=== PATIENT | male | born 1960 | race Caucasian/White ===

== ENCOUNTER 2017-03-10 21:00 | Inpatient (IN) | payer MEDICAID, OTHER ==
[~2017-03-10] VITALS: Ht 188 cm; Wt 93.0 kg
[~2017-03-10 21:00] MED LIST: AMLO10TA PO; ASPI-1052 PO; ATOR20TA PO; BEN50 PO; CARV25TA PO; FURO-570 PO; ISOS30TE PO; NITR0.4T2 SL; POTA20TE62 PO; RANO10002 PO; [UNRECOGNIZED DRUG - CODE] TD
[2017-03-10 21:09] VITALS: BP 155/76
--- NOTE | 2017-03-10 22:45 | NUR ---
PT. AMBULATED TO ER BED 4
[2017-03-10] MEDS ORDERED: ASPIRIN 325 MG TAB PO ONE (23:00)
[2017-03-10] MEDS ORDERED: NITROGLYCERIN 0.4 MG TAB SL ONE (23:00)
--- NOTE | 2017-03-10 23:04 | NUR ---
89Y/M PT. PRESESNT TO ED WITH C/O CHEST PAIN X 1 HR. PT. STATES PAIN AT LT. CHEST RADIATES TO NECK AND LT. SHOULDER, STATES PAIN 09/22. HX. AL X3, CABG, PACE MAKER. AAO X4, AMBULATORY WITH DAY GAIT. RESPIRTAIONS ROOM AIR, EVEN AND UNLABORED. BL LUNG CLEAR. ABDOMEN SOFT, NON TENDER. VSS, ER MADE AWARE OF PT. STATUS. Addendum: 03/11/17 at 0027 by MEDSP NTG TAKEN X3 PAIN NOT RELIEF
--- NOTE | 2017-03-10 23:05 | NUR ---
Patient being evaluated by at bedside.
--- NOTE | 2017-03-10 23:20 | NUR ---
CHEST PAIN NOT RELIEF, BP 102/45 P77, NOTIFIED DR. AGRAWAL. HOLD NTG 2ND DOSE.
[2017-03-10] MEDS ORDERED: MORPHINE SULFATE 5 MG/ML VIAL IVP ONE (23:25)
[2017-03-10 23:34] LABS: HEMATOCRIT 32.8 % (36-52); HEMOGLOBIN 10.5 g/dL (12.0-18.0); MEAN CORPUSCULAR HEMOGLOBIN 29 pg (27-31); MEAN CORPUSCULAR HGB CONC 32 g/dL (33-37); MEAN CORPUSCULAR VOLUME 91 fL (80-94); PLATELET COUNT (AUTO) 144 K/uL (140-450); RED BLOOD CELL COUNT(AUTO) 3.61 MIL/uL (4.20-6.10); RED CELL DISTRIBUTION WIDTH 20.4 % (11.6-13.7); WHITE BLOOD COUNT (AUTO) 3.9 K/uL (4.8-10.8)
[2017-03-10 23:53] LABS: ANION GAP 11.2 (8-16); CARBON DIOXIDE 29.7 mmol/L (21-32); POTASSIUM 4.9 mmol/L (3.5-5.1); PROTHROMBIN TIME 11.6 secs (10.8-13.4)
[2017-03-11] VITALS (7 sets, daily range): BP systolic 103–126; BP diastolic 44–70
[2017-03-11] LABS: EOSINOPHILS % (MANUAL) 2 % (0-4); LYMPHOCYTES % (MANUAL) 13 % (20-46); MONOCYTES % (MANUAL) 11 % (5-12)
--- NOTE | 2017-03-11 | NUR ---
Patient appears to be resting comfortably in bed. Vital Signs within normal limits. Respirations even and unlabored.
[2017-03-11 00:06] LABS: TOTAL BILIRUBIN 0.8 mg/dL (0.0-1.0)
[2017-03-11 00:07] LABS: ALBUMIN 3.7 g/dL (3.4-5.0)
[2017-03-11] MEDS ORDERED: MORPHINE SULFATE 5 MG/ML VIAL IVP ONE (00:45)
[2017-03-11] MEDS ORDERED: ONDANSETRON 4 MG/2 ML VIAL IVP PRN (01:55)
[2017-03-11] MEDS ORDERED: ACETAMINOPHEN 325 MG TAB PO PRN (01:55)
[2017-03-11] MEDS ORDERED: HYDROcodone/APAP 7.5/325 MG 1 TAB PO PRN (01:55)
--- NOTE | 2017-03-11 02:10 | NUR ---
Patient will be admitted to care of . Admited to TELE. Will go to room 106A. Belongings list completed. Report to ANTONIO VALENCIA.
--- NOTE | 2017-03-11 02:20 | NUR ---
PT ARRIVED TO UNIT VIA GURNEY, AMBULATED TO BED FROM HALLWAY WITH STEADY GAIT. RECEIVED REPORT AT BEDSIDE FROM ER NURSE. PT A/OX4, ON ROOM AIR. PT HAS RIGHT UPPER ARM 22G IV, SL. SKIN INTACT. SAFETY PRECAUTIONS IN PLACE. UPDATED BOARD. VITAL SIGNS WITHIN NORMAL LIMITS, PT DENIES PAIN. PT IN STABLE CONDITION, NO SIGNS OF DISTRESS NOTED. BED IN LOW POSITION, CALL LIGHT WITHIN REACH. WILL CONTINUE TO MONITOR.
[2017-03-11 02:41] LABS: CHOL/HDL RATIO 2.1 (1-4.5); FREE T4 (FREE THYROXINE) 0.85 ng/dL (0.76-1.46); MAGNESIUM 2.2 mg/dL (1.8-2.4); PHOSPHORUS 2.6 mg/dL (2.5-4.9); THYROID STIMULATING HORMONE 0.98 uIU/mL (0.34-3.74)
[2017-03-11] MEDS ORDERED: ISOS20TA13 PO (03:49)
[2017-03-11] MEDS ORDERED: NITROGLYCERIN 0.4 MG TAB SL PRN (03:50)
[2017-03-11] MEDS ORDERED: HYDROmorphone 1 MG/ML AMP IVP PRN (03:50)
--- NOTE | 2017-03-11 04:00 | NUR ---
VITAL SIGNS WITHIN NORMAL LIMITS, PT DENIES PAIN. PT IN STABLE CONDITION, NO SIGNS OF DISTRESS NOTED. BED IN LOW POSITION, CALL LIGHT WITHIN REACH. WILL CONTINUE TO MONITOR.
[2017-03-11] MEDS ORDERED: ALBUTEROL SULFATE/IPRATROPIU 3 ML SOL IH PRN (04:30)
[2017-03-11] MEDS: HYDROmorphone PFS 2 MG/ML SYR IVP PRN ×6 (04:32→21:41)
--- NOTE | 2017-03-11 07:16 | NUR ---
ENDORSED PT IN STABLE CONDITION TO DAY SHIFT NURSE FOR CONTINUITY OF CARE.
--- NOTE | 2017-03-11 07:17 | NUR ---
RECEIVED REPORT FROM AIRCRAFT TIME CLERK RN. PATIENT IS AAOX4, RESPIRATORY EFFORT EVEN AND UNLABORED. NO SIGNS AND SYMPTOMS OF ACUTE DISTRESS NOTED AT THIS TIME. HAS IV TO RIGHT UPPER ARM 22G ON SALINE LOCK AT THIS TIME. DISCUSSED PLAN OF CARE WITH PATIENT, VERBALIZED UNDERSTANDING. BED IN LOWEST POSITION, SIDE RAILS UP X2, CALL LIGHT PLACED WITHIN REACH. WILL CONTINUE TO MONITOR.
[2017-03-11] MEDS ORDERED: NITROGLYCERIN 0.6 MG/HR PATCH TD SCH (09:00)
[2017-03-11] MEDS: CARVEDILOL 12.5 MG TAB PO SCH ×2 (09:00→21:40)
[2017-03-11] MEDS: ISOSORBIDE DINITRATE 20 MG TAB PO SCH ×3 (09:00→17:00)
[2017-03-11] MEDS: ATORVASTATIN 20 MG TAB PO SCH (09:01)
[2017-03-11] MEDS: RANOLAZINE 500 MG TER PO SCH ×2 (09:02→21:00)
[2017-03-11] MEDS: DOCUSATE SODIUM 100 MG GELCAP PO SCH ×2 (09:02→21:38)
[2017-03-11] MEDS: FUROSEMIDE 40 MG TAB PO SCH ×2 (09:02→21:40)
[2017-03-11] MEDS: POTASSIUM CHLORIDE 10 MEQ TABER PO SCH (09:03)
[2017-03-11] MEDS: ASPIRIN 325 MG TABEC PO SCH (09:03)
[2017-03-11] MEDS ORDERED: NITROGLYCERIN 0.3 MG/HR PATCH TD SCH (15:15)
[2017-03-11] MEDS ORDERED: ZOLPIDEM 10 MG TAB PO PRN (16:45)
--- NOTE | 2017-03-11 19:12 | NUR ---
ENDORSED PATIENT TO CHARGING MACHINE OPERATOR RN FOR CONTINUITY OF CARE. PATIENT IN STABLE CONDITION.
--- NOTE | 2017-03-11 19:13 | NUR ---
RECEIVED REPORT AT BEDSIDE FROM DAY SHIFT NURSE. PT A/OX4, ON ROOM AIR. PT HAS RIGHT UPPER ARM 22G IV, SL. SKIN INTACT. SAFETY PRECAUTIONS IN PLACE. UPDATED BOARD. VITAL SIGNS WITHIN NORMAL LIMITS, PT DENIES PAIN. PT IN STABLE CONDITION, NO SIGNS OF DISTRESS NOTED. BED IN LOW POSITION, CALL LIGHT WITHIN REACH. WILL CONTINUE TO MONITOR.
[2017-03-11] MEDS: diphenhydrAMINE 50 MG CAP PO PRN (21:58)
--- NOTE | 2017-03-11 22:00 | NUR ---
ADMINISTERED SCHEDULED MEDICATIONS PLUS DILAUDID FOR PAIN AND BENADRYL FOR ITCHING, PT TOLERATED WELL. PT IN STABLE CONDITION, NO SIGNS OF DISTRESS NOTED. BED IN LOW POSITION, CALL LIGHT WITHIN REACH. WILL CONTINUE TO MONITOR.
[2017-03-12] MEDS: HYDROmorphone PFS 2 MG/ML SYR IVP PRN ×4 (01:25→13:21)
--- NOTE | 2017-03-12 01:25 | NUR ---
PT C/O 09/22 BACK PAIN, MEDICATED WITH DILAUDID, PT TOLERATED WELL. VITAL SIGNS WITHIN NORMAL LIMITS, PT DENIES PAIN. PT IN STABLE CONDITION, NO SIGNS OF DISTRESS NOTED. BED IN LOW POSITION, CALL LIGHT WITHIN REACH. WILL CONTINUE TO MONITOR. Addendum: 03/12/17 at 0158 by Michaela Polanco RN DENIES CHEST PAIN.
[2017-03-12 04:00] VITALS: BP 140/80
[2017-03-12 07:17] LABS: BASOPHILS # (AUTO) 0.1 K/uL (0.00-0.22); BASOPHILS % (AUTO) 3.2 % (0.0-2.0); HEMATOCRIT 33.8 % (36-52); HEMOGLOBIN 11.4 g/dL (12.0-18.0); LYMPHOCYTES # (AUTO) 0.5 K/uL (2.0-11.5); LYMPHOCYTES % (AUTO) 19.8 % (20.5-51.1); MEAN CORPUSCULAR HEMOGLOBIN 30 pg (27-31); MEAN CORPUSCULAR HGB CONC 34 g/dL (33-37); MEAN CORPUSCULAR VOLUME 90 fL (80-94); MONOCYTES # (AUTO) 0.3 K/uL (0.8-1.0); MONOCYTES % (AUTO) 11.3 % (1.7-9.3); NEUTROPHILS # (AUTO) 1.8 K/uL (1.8-7.7); NEUTROPHILS % (AUTO) 64.7 % (42.2-75.2); PLATELET COUNT (AUTO) 113 K/uL (140-450); RED BLOOD CELL COUNT(AUTO) 3.75 MIL/uL (4.20-6.10); RED CELL DISTRIBUTION WIDTH 20.2 % (11.6-13.7); WHITE BLOOD COUNT (AUTO) 2.7 K/uL (4.8-10.8)
--- NOTE | 2017-03-12 07:26 | NUR ---
RECEIVED REPORT FROM SURGERY NURSE NURSE. PT IS RESTING IN BED. AAOX4 AMBULATORY. IV RIGHT UPPER ARM SALINE LOCK 22G. NO S/S OF RESPIRATORY DISTRESS OR DISCOMFORT NOTED. DISCUSSED PLAN OF CARE WITH PT. SAFETY/FALL PRECAUTIONS IN PLACE. CALL LIGHT WITHIN REACH. WILL CONTINUE TO MONITOR.
--- NOTE | 2017-03-12 07:36 | NUR ---
ENDORSED PT IN STABLE CONDITION TO DAY SHIFT RN FOR CONTINUITY OF CARE.
[2017-03-12 08:00] VITALS: BP 113/67
[2017-03-12 08:04] LABS: ANION GAP 10.7 (8-16); CARBON DIOXIDE 31.7 mmol/L (21-32); POTASSIUM 4.4 mmol/L (3.5-5.1)
[2017-03-12 08:06] LABS: MAGNESIUM 1.9 mg/dL (1.8-2.4); PHOSPHORUS 3.6 mg/dL (2.5-4.9)
[2017-03-12] MEDS: DOCUSATE SODIUM 100 MG GELCAP PO SCH (08:14)
--- NOTE | 2017-03-12 08:14 | NUR ---
DUE MEDICATIONS GIVEN, PT TOLERATED WELL, CALL LIGHT WITHIN REACH, WILL CONTINUE TO MONITOR.
[2017-03-12] MEDS: ASPIRIN 325 MG TABEC PO SCH (08:15)
[2017-03-12] MEDS: RANOLAZINE 500 MG TER PO SCH (08:16)
[2017-03-12] MEDS: ISOSORBIDE DINITRATE 20 MG TAB PO SCH ×3 (08:16→16:57)
[2017-03-12] MEDS: CARVEDILOL 12.5 MG TAB PO SCH (08:17)
[2017-03-12] MEDS: diphenhydrAMINE 50 MG CAP PO PRN (08:18)
[2017-03-12] MEDS: ATORVASTATIN 20 MG TAB PO SCH (08:18)
[2017-03-12] MEDS: POTASSIUM CHLORIDE 10 MEQ TABER PO SCH (08:27)
[2017-03-12] MEDS ORDERED: NITROGLYCERIN 0.3 MG/HR PATCH TD SCH (09:00)
--- NOTE | 2017-03-12 09:32 | NUR ---
PATIENT HAS BEEN SCREENED AND CATEGORIZED MODERATE NUTRITION RISK. PATIENT WILL BE SEEN WITHIN 3-5 DAYS OF ADMISSION. 03/14/17 - 03/16/17 ELLE OSORIO MBA, RD
--- NOTE | 2017-03-12 09:55 | NUR ---
PATIENT COMPLAINING OF 8/10 PAIN LEVEL, WILL MEDICATE WITH PRN PAIN MEDICATION.
[2017-03-12] MEDS: FUROSEMIDE 40 MG TAB PO SCH ×2 (09:59→16:56)
[2017-03-12 12:00] VITALS: BP 110/96
--- NOTE | 2017-03-12 13:21 | NUR ---
PATIENT COMPLAINING OF A 8/10 PAIN LEVEL, PT STATED ITS ACHING SHARP BACK PAIN. WILL MEDICATE WITH PRN PAIN MEDICATION AT THIS TIME.
[2017-03-12 16:00] VITALS: BP 128/61
--- NOTE | 2017-03-12 17:21 | NUR ---
PATIENT REQUESTING DILAUDID IVP FOR HIS PAIN. I LET HIM KNOW THE DOCTOR HAD DISCONTINUED IT BECAUSE HE IS BEING DISCHARGED.
--- NOTE | 2017-03-12 17:32 | NUR ---
PATIENT ASKED TO SHOWER, ASSISTED PT TO SHOWER ROOM.
--- NOTE | 2017-03-12 18:05 | NUR ---
DISCHARGE INSTRUCTIONS GIVEN. PT VERBALIZED UNDERSTANDING. IV DISCONTINUED. IV INTACT. ID BAND TAKEN OFF. PT STABLE UPON DISCHARGE.
[2017-03-14 06:15] LABS: FOLIC ACID 6.6 ng/mL (>3.0)
== END 2017-03-12 18:45 | disposition home or self-care (01) | DRG 243 ==
LOC: MED 21:00 → MTU 03-11 01:52
PROVIDERS: ADMIT Family Medicine Sports Medicine; ATTEND Family Medicine Sports Medicine
DX: K21.9 Gastro-esophageal reflux disease without esophagitis (principal); I50.43 Acute on chronic combined systolic (congestive) and diastolic (congestive) heart failure; Z95.1 Presence of aortocoronary bypass graft; E78.5 Hyperlipidemia, unspecified; M94.0 Chondrocostal junction syndrome [Tietze]; E78.00 Pure hypercholesterolemia, unspecified; G89.29 Other chronic pain; M54.5 Low back pain; D64.9 Anemia, unspecified; I25.2 Old myocardial infarction; I25.10 Atherosclerotic heart disease of native coronary artery without angina pectoris; Z95.0 Presence of cardiac pacemaker; Z88.8 Allergy status to other drugs, medicaments and biological substances; Z90.49 Acquired absence of other specified parts of digestive tract; Z60.2 Problems related to living alone; Z95.5 Presence of coronary angioplasty implant and graft
CPT/HCPCS: 36415; 71045; 76705; 80048; 80053; 82607; 82728; 82746; 83036; 83540; 83735; 83880; 84100; 84439; 84443; 84484; 85025; 85045; 85610; 85730; 87081; 93005; 96374; 96375; 99285; J1170; Q0092; Q0163

== ENCOUNTER 2018-05-26 21:41 | Inpatient (IN) | payer MEDICAID, MEDICARE ==
[~2018-05-26] VITALS: Ht 190.5 cm; Wt 94.8 kg
--- NOTE | 2018-05-26 01:20 | NUR ---
PT IS AMBULATORY, ALTHOUGH W/ STANDBY ASSIST. NO SCD DEVICE ATTACHED. DR. PUTNAM Addendum: 05/27/18 at 0801 by Latasha Grayson RN DEVNOTE TRIVEDI
[~2018-05-26 21:41] MED LIST changes: +ISOS20TA13 PO; -ISOS30TE PO
[2018-05-26 21:45] VITALS: BP 151/81
--- NOTE | 2018-05-26 21:52 | NUR ---
EKG PERFORMED IN TRIAGE ROOM
--- NOTE | 2018-05-26 21:52 | NUR ---
TO BED # 08 AMBULATORY, REPORT GIVEN TO AMOR ALVAREZ
--- NOTE | 2018-05-26 22:01 | NUR ---
PT TO ED WITH C/O CP SUDDEN ONSET X 45 MINS. PT C/O SOB, LUNG SOUNDS CLEAR TO ASCULTATION. BLE EDEMA NOTED +2/PITTING. CAP REFILL WNL. PULSES WNL. PT PLACED INTO BED, PENDING MD DIAMOND.
[2018-05-26 22:32] LABS: BASOPHILS % (AUTO) 0.5 % (0.0-2.0); EOSINOPHILS % (AUTO) 0.8 % (0.0-4.0); HEMATOCRIT 35.1 % (36-52); HEMOGLOBIN 11.4 g/dL (12.0-18.0); LYMPHOCYTES # (AUTO) 0.4 K/uL (2.0-11.5); LYMPHOCYTES % (AUTO) 9.5 % (20.5-51.1); MEAN CORPUSCULAR HEMOGLOBIN 29 pg (27-31); MEAN CORPUSCULAR HGB CONC 32 g/dL (33-37); MEAN CORPUSCULAR VOLUME 88.9 fL (80-94); MONOCYTES # (AUTO) 0.4 K/uL (0.8-1.0); MONOCYTES % (AUTO) 9.3 % (1.7-9.3); NEUTROPHILS # (AUTO) 3.4 K/uL (1.8-7.7); NEUTROPHILS % (AUTO) 79.9 % (42.2-75.2); PLATELET COUNT (AUTO) 104 K/uL (140-450); RED BLOOD CELL COUNT(AUTO) 3.95 MIL/uL (4.20-6.10); RED CELL DISTRIBUTION WIDTH 17.4 % (11.6-13.7); WHITE BLOOD COUNT (AUTO) 4.3 K/uL (4.8-10.8)
[2018-05-26 22:52] LABS: ALBUMIN 3.7 g/dL (3.4-5.0); ANION GAP 14.9 (8-16); CARBON DIOXIDE 24.7 mmol/L (21-32); CREATININE 1.1 mg/dL (0.7-1.3); POTASSIUM 3.6 mmol/L (3.5-5.1); TOTAL BILIRUBIN 0.8 mg/dL (0.0-1.0)
[2018-05-27] MEDS ORDERED: NITROGLYCERIN 0.4 MG TAB SL ONE (00:25)
[2018-05-27] MEDS ORDERED: NITROGLYCERIN 2% 1 GM PKT TP ONE (00:25)
[2018-05-27] MEDS ORDERED: ONDANSETRON 4 MG/2 ML VIAL IVP PRN (00:45)
[2018-05-27] MEDS ORDERED: ACETAMINOPHEN 325 MG TAB PO PRN (00:45)
[2018-05-27] MEDS ORDERED: ZOLPIDEM 5 MG TAB PO PRN (00:45)
[2018-05-27] MEDS ORDERED: HYDROcodone/APAP 7.5/325 MG 1 TAB PO PRN (00:45)
[2018-05-27] MEDS ORDERED: NITROGLYCERIN 0.4 MG TAB SL PRN ×2 (00:45→04:55)
--- NOTE | 2018-05-27 01:15 | NUR ---
RECEIVED PT FROM ER VIA YVON GRANT, WilnerO 4 AMBULATORY W/ STANDBY ASSIST. UNSTEADY GAIT NOTED. PT HAS HX OF NEURO DEFICIT, W/ SLIGHT SPEECH DELAY NOTED; PT SAID HE HAS HX: CHRONIC LOW BACK PAIN DUE TO FALL FROM ESCALATOR STAIRS, UNTREATED DUE TO HEART CONDITION. SKIN ASSESSMENT DONE, W/ SCRATCHES ON LE NOTED, INTACT. PT ORIENTED TO UNIT. PLACED ON FALL RISK. PLACED IN LOW BED POSITION. BED ALARM, AND CALL LIGHT WITHIN EASY REACH
[2018-05-27 01:20] LABS: FREE T4 (FREE THYROXINE) 1.11 ng/dL (0.76-1.46); PHOSPHORUS 2.8 mg/dL (2.5-4.9); THYROID STIMULATING HORMONE 2.52 uIU/mL (0.34-3.74)
--- NOTE | 2018-05-27 01:20 | NUR ---
Patient will be admitted to care of DR HERNÁNDEZ. Admited to TELE. Will go to room 125-B. Belongings list completed. Report to ANTONIO IBRAHIM.
--- NOTE | 2018-05-27 01:20 | NUR ---
PT IS AMBULATORY, ALTHOUGH W/ STANDBY ASSIST. NO SCD DEVICE ATTACHED. DR. PUTNAM
[2018-05-27] MEDS ORDERED: MAG SULF 2000 MG/WATER PREMIX 50 ML IV SCH (01:30)
--- NOTE | 2018-05-27 01:30 | NUR ---
PT TRYING TO GET SOME SLEEP, IN BED NO RESPIRATORY DISTRESS NOTED.
[2018-05-27] MEDS: NACL 0.9% 1,000 ML IV SCH (02:42)
--- NOTE | 2018-05-27 02:55 | NUR ---
PT C/O OF PAIN ON LOW BACK, GIVEN NORCO. NO CHEST COMPLAINTS AT THIS TIME.
[2018-05-27 04:00] VITALS: BP 132/63
[2018-05-27] MEDS ORDERED: ATOR20TA PO (04:48)
[2018-05-27] MEDS ORDERED: HYDR2TAB6 PO (04:53)
--- NOTE | 2018-05-27 06:23 | NUR ---
PATIENT HAS BEEN SCREENED AND CATEGORIZED MODERATE NUTRITION RISK. PATIENT WILL BE SEEN WITHIN 3-5 DAYS OF ADMISSION. 05/28/18-05/31/18 SERA CANAS MS, RDN
--- NOTE | 2018-05-27 07:18 | NUR ---
ENDORSED TO AM SHIFT FOR CONTINUITY OF CARE. PT IS AWAKE, NO COMPLAINTS OF PAIN AT THIS TIME.
--- NOTE | 2018-05-27 07:30 | NUR ---
RECEIVED HAND OFF REPORT FROM NIGHTSHIFT NURSE. PT IS AWAKE IN BED. PT IV IS INFUSING AT 10ML/HR AND HAS NO SIGNS OF INFILTRATION OR INFECTION. PT APPEARS IN STABLE CONDITION WITH NO APPARENT DISTRESS. ALL SAFETY MEASURES ARE IN PLACE AND WILL CONTINUE TO MONITOR.
[2018-05-27 08:00] VITALS: BP 121/55
--- NOTE | 2018-05-27 08:00 | NUR ---
SPOKE WITH THE PATIENT THAT HE IS FALL RISK AND WE RECOMMEND THAT TO PUT HIM CLOSE TO THE NURSES STATION BUT PATIENT STATED HE WONT TRY TO GET UP BY HIMSELF AND USE CALL LIGHT AND ALSO PT. REFUSED TO BE ON BED ALARM. PT IS A/OX4. NURSE JOAN AWARE OF IT AND WILL MONITOR PT.
[2018-05-27 08:49] LABS: CHOL/HDL RATIO 2.9 (1-4.5)
[2018-05-27] MEDS ORDERED: ASPIRIN 325 MG TABEC PO SCH (09:00)
[2018-05-27] MEDS: RANOLAZINE 500 MG TER PO SCH ×2 (09:00→21:28)
[2018-05-27] MEDS: NITROGLYCERIN 0.6 MG/HR PATCH TD SCH (09:00)
--- NOTE | 2018-05-27 09:04 | NUR ---
EMI CHARGE NURSE INFORMED ME THAT PT IS REFUSING TO BE SWITCHED ROOMS TO A CLOSER LOCATION DUE TO PT BEING A FALL RISK. I SPOKE WITH THE PT PERSONALLY AND THE PT REFUSED TO SWITCH ROOMS. EMI AND I BOTH ASKED THE PATIENT TO SWITCH BEDS TO A BED WITH A BED ALARM PT ALSO REFUSED. PT STATED TO ME, EMI, AND ASHTYN THAT HE WILL USE THE CALL LIGHT TO REQUEST HELP TO THE RESTROOM. PT STATED HE WANTED PAIN MEDICATIONS. WILL ASK THE PATIENT TO SWITCH ROOMS IN A LITTLE BIT AFTER PAIN MEDICATIONS ARE GIVEN.
--- NOTE | 2018-05-27 09:38 | NUR ---
2 ORDERS FOR ASPIRIN SPOKE TO DR. GERMAIN SHE SAID THE 325 MG ASPIRIN SHOULD BE DISCONTINUED
[2018-05-27] MEDS: METOPROLOL 25 MG TAB PO SCH ×2 (09:44→17:00)
[2018-05-27] MEDS: CARVEDILOL 12.5 MG TAB PO SCH ×2 (09:45→17:00)
[2018-05-27] MEDS: ASPIRIN 81 MG TAB.CHEW PO SCH (09:45)
[2018-05-27] MEDS: HYDROmorphone 2 MG TAB PO PRN (09:45)
[2018-05-27] MEDS: diphenhydrAMINE 50 MG CAP PO SCH ×3 (09:46→17:48)
[2018-05-27] MEDS: amLODIPine 5 MG TAB PO SCH ×2 (09:46→21:00)
[2018-05-27] MEDS: POTASSIUM CHLORIDE 10 MEQ TABER PO SCH (09:46)
[2018-05-27] MEDS: FUROSEMIDE 40 MG TAB PO SCH ×2 (09:47→21:00)
[2018-05-27] MEDS: LISINOPRIL 5 MG TAB PO SCH (09:47)
[2018-05-27] MEDS: ISOSORBIDE DINITRATE 20 MG TAB PO SCH ×4 (09:47→17:00)
[2018-05-27] MEDS: DOCUSATE SODIUM 100 MG GELCAP PO SCH ×2 (09:48→21:00)
--- NOTE | 2018-05-27 10:07 | NUR ---
HELD HEPARIN INJECTION BECAUSE PLT WAS 104. NOT ADMINISTERED NITROGLYCERIN PATCH NOT IN PYXIS, NOT IN PT CASSETT. CALLED PHARMACY. PHARMACY SAID THEY DONT HAVE ANY AT THE MOMENT. PHARMACIST WILL GET BACK TO ME IN A MOMENT.
[2018-05-27 12:00] VITALS: BP 91/50
--- NOTE | 2018-05-27 13:14 | NUR ---
PT REFUSED ISOSORBIDE DINITRATE. HELD MEDICATION
--- NOTE | 2018-05-27 15:00 | NUR ---
URINE SPECIMEN COLLECTED. BROUGHT TO LAB.
--- NOTE | 2018-05-27 15:35 | NUR ---
FREQUENT ROUNDING PT IS ASLEEP. NOTABLE CHEST RISE AND FALL. PT APPEARS IN NO APPARENT DISTRESS. ALL SAFETY MEASURES ARE IN PLACE. WILL CONTINUE TO MONITOR.
[2018-05-27 16:00] VITALS: BP 95/51
--- NOTE | 2018-05-27 17:01 | NUR ---
HELD PATIENTS 1700 COREG. LOPRESSOR AND ISOSORBIDE DINITRATE. BP 98/59. BP IS TO LOW TO ADMINISTER MORE BLOOD PRESSURE MEDICATIONS.
[2018-05-27 18:11] LABS: APPEARANCE,URINE CLEAR (CLEAR); BILIRUBIN,URINE NEGATIVE (NEGATIVE); BLOOD, URINE NEGATIVE (NEGATIVE); COLOR,URINE YELLOW (YELLOW); LEUKOCYTE ESTERASE ,URINE NEGATIVE (NEGATIVE); NITRITE, URINE NEGATIVE (NEGATIVE); UGLUCOSE NEGATIVE (NEGATIVE)
[2018-05-27 18:18] LABS: BARBITURATE, URINE NEG. ng/ml (NEG <=200); BENZODIAZEPINE, URINE NEG. ng/mL (NEG <=200); CANNABINOID, URINE NEG. ng/mL (NEG <=50); COCAINE, URINE NEG. ng/mL (NEG <=300); OPIATE, URINE NEG. ng/mL (NEG <=2000); PHENCYCLIDINE SCREEN,URINE NEG. ng/mL (NEG <=25)
--- NOTE | 2018-05-27 18:21 | NUR ---
FREQUENT ROUNDING ON PATIENT PT IS ASLEEP IN BED WITH NOTABLE CHEST RISE AND FALL, PT IS STABLE AND IN NO APPARENT DISTRESS. ALL SAFETY MEASURES ARE IN PLACE. WILL CONTINUE TO MONITOR.
--- NOTE | 2018-05-27 19:22 | NUR ---
ENDORSED PT TO CRINKLING MACHINE OPERATOR NURSE PT IS ASLEEP IN BED WITH NOTABLE CHEST RISE AND FALL. IV SITE FLUSHED WITH NO SIGNS OF INFILTRATION OR INFLAMMATION. PT APPEARS STABLE WITH NO APPARENT DISTRESS. ALL SAFETY MEASURES ARE IN PLACE.
--- NOTE | 2018-05-27 19:23 | NUR ---
RECEIVED AM SHIFT NURSE. PT IS AWAKE, A, O X 4. AMBULATORY W/ UNSTEADY GAIT.PT IV IS INFUSING AT 10ML/HR AND HAS NO SIGNS OF INFILTRATION OR INFECTION. PT HAS NO COMPLAINTS OF CHEST PAIN AT THIS TIME. PT IS A FALL RISK. PT REFUSED TO HAVE BED CHANGED NOR HAVE HIS ROOM CHANGED NEARER TO THE STATION. WILL CONTINUE TO MONITOR.
[2018-05-27 20:00] VITALS: BP 79/40
[2018-05-27] MEDS: ATORVASTATIN 20 MG TAB PO SCH (20:52)
[2018-05-27] MEDS ORDERED: ATORVASTATIN 20 MG TAB PO SCH (21:00)
--- NOTE | 2018-05-27 21:15 | NUR ---
OFFERED PT TO CHANGE BED BECAUSE PT'S PRESENT BED HAS NO BED ALARM. PATIENT AT FALL RISK. ALSO OFFERED PT TO HAVE A CHANGE OF ROOM PLACED NEARER THE NURSES'S STATION BUT FOR BOTH OPTIONS PT REFUSED. WILL INFORM CHARGE NURSE
--- NOTE | 2018-05-27 21:22 | NUR ---
DR. DEGROOT INFORMED THAT BP - 79/40 HIGH BACK REST, SIDELYING POSITION. HELD LASIX, AND NORVASC. DR. PUTNAM.
--- NOTE | 2018-05-27 21:24 | NUR ---
REFUSED ON HAVING HIS MEDS; HEPARIN NA, AND COLACE. DR. DEGROOT AWARE. PATIENT BEEN GOING BACK AND FORTH TO THE BATHROOM STANDBY ASSIST.
[2018-05-28] VITALS: BP 80/39
[2018-05-28] MEDS: NACL 0.9% 1,000 ML IV SCH (00:41)
--- NOTE | 2018-05-28 02:00 | NUR ---
CHECKED OF PT FREQUENTLY, PT SLEEPING SOUNDLY AT HIS SIDE. NO COMPLAINTS OF PAIN AT THIS TIME
[2018-05-28 04:00] VITALS: BP 93/56
--- NOTE | 2018-05-28 04:15 | NUR ---
PT STILL SLEEPING VS TAKEN, BP 80/39 SUPINE. PLACED ON [place] POSITION. RECHECKED AFTER 30 MINS BP STILL LOW 80/[address] DEGROOT.
[2018-05-28 06:52] LABS: BASOPHILS % (AUTO) 0.3 % (0.0-2.0); EOSINOPHILS % (AUTO) 1.5 % (0.0-4.0); HEMATOCRIT 32.9 % (36-52); HEMOGLOBIN 10.8 g/dL (12.0-18.0); LYMPHOCYTES # (AUTO) 0.4 K/uL (2.0-11.5); MEAN CORPUSCULAR HEMOGLOBIN 29 pg (27-31); MEAN CORPUSCULAR HGB CONC 33 g/dL (33-37); MEAN CORPUSCULAR VOLUME 88.8 fL (80-94); MONOCYTES # (AUTO) 0.3 K/uL (0.8-1.0); MONOCYTES % (AUTO) 10.4 % (1.7-9.3); NEUTROPHILS # (AUTO) 2.2 K/uL (1.8-7.7); NEUTROPHILS % (AUTO) 74.8 % (42.2-75.2); PLATELET COUNT (AUTO) 99 K/uL (140-450); RED CELL DISTRIBUTION WIDTH 17.5 % (11.6-13.7); WHITE BLOOD COUNT (AUTO) 2.9 K/uL (4.8-10.8)
[2018-05-28 07:04] LABS: ANION GAP 10.9 (8-16); CARBON DIOXIDE 26.2 mmol/L (21-32); CREATININE 0.8 mg/dL (0.7-1.3); POTASSIUM 4.1 mmol/L (3.5-5.1)
[2018-05-28 07:08] LABS: MAGNESIUM 1.7 mg/dL (1.8-2.4); PHOSPHORUS 3.4 mg/dL (2.5-4.9)
--- NOTE | 2018-05-28 07:34 | NUR ---
ENDORSED TO NEXT SHIFT FOR CONTINUITY OF CARE. PT ASLEEP ON BED, STILL LOW BP WILL ENDORSE TO NEXT SHIFT.
--- NOTE | 2018-05-28 07:35 | NUR ---
Received bedside report from pm nurse Latasha. Pt asleep in bed, respirations even & nonlabored, FLACC 0. Call light within reach.
[2018-05-28] MEDS: METOPROLOL 25 MG TAB PO SCH (08:00)
[2018-05-28] MEDS: CARVEDILOL 12.5 MG TAB PO SCH ×2 (08:00→17:59)
--- NOTE | 2018-05-28 08:05 | NUR ---
ASSUMED CARE FROM ANGI-ANTONIO. RECEIVED PT ASLEEP, AROUSABLE, ORIENTED X4. NO SOB NOTED. NO C/O PAIN AT THIS TIME. IV TO LT UPPER ARM PATENT AND INTACT. CHEST, DIMINISHED AIR ENTRY TO THE BASES. ABDOMEN SOFT, BOWEL SOUNDS PRESENT. PT REFUSED TO HAVE VITAL SIGNS TAKEN AND NOT TO BE BOTHERED FOR NOW, STATED TO COME IN AN HOUR. INSTRUCTED PT TO CALL FOR ASSISTANCE, CALL LIGHT WITHIN REACH, VERBALIZED UNDERSTANDING.
--- NOTE | 2018-05-28 08:05 | NUR ---
Report given to nurse Shane.
[2018-05-28 09:00] VITALS: BP 97/46
[2018-05-28] MEDS: LISINOPRIL 5 MG TAB PO SCH (09:00)
[2018-05-28] MEDS: ISOSORBIDE DINITRATE 20 MG TAB PO SCH ×3 (09:00→18:00)
[2018-05-28] MEDS: ASPIRIN 81 MG TAB.CHEW PO SCH (09:00)
[2018-05-28] MEDS: NITROGLYCERIN 0.6 MG/HR PATCH TD SCH (09:00)
[2018-05-28] MEDS: diphenhydrAMINE 50 MG CAP PO SCH ×3 (09:00→17:59)
[2018-05-28] MEDS: amLODIPine 5 MG TAB PO SCH (09:00)
--- NOTE | 2018-05-28 09:00 | NUR ---
PT REFUSED TO TAKE HIS SCHEDULED MEDS YET, STATED HE WILL TAKE IT LATER. RISKS AND CONSEQUENCES EXPLAINED TO PT, VERBALIZED UNDERSTANDING.
[2018-05-28] MEDS ORDERED: MAGNESIUM OXIDE 400 MG TAB PO SCH (10:30)
--- NOTE | 2018-05-28 11:30 | NUR ---
OFFERED PT HIS SCHEDULED MEDS AGAIN AND STATED HE DOES NOT WANT TO TAKE IT AT THIS TIME, RISKS AND CONSEQUENCES EXPLAINED TO PT, VERBALIZED UNDERSTANDING.
[2018-05-28 12:00] VITALS: BP 120/64
[2018-05-28] MEDS: HYDROmorphone 2 MG TAB PO PRN (14:27)
[2018-05-28] MEDS: DOCUSATE SODIUM 100 MG GELCAP PO SCH ×2 (14:28→20:10)
[2018-05-28] MEDS: RANOLAZINE 500 MG TER PO SCH ×2 (14:28→20:10)
[2018-05-28] MEDS: POTASSIUM CHLORIDE 10 MEQ TABER PO SCH (14:29)
[2018-05-28] MEDS: FUROSEMIDE 40 MG TAB PO SCH ×2 (14:29→20:10)
--- NOTE | 2018-05-28 14:30 | NUR ---
PT TOOK HIS SCHEDULED MEDS, BUT REFUSED SOME OF IT, RISKS AND CONSEQUENCES EXPLAINED, VERBALIZED UNDERSTANDING.
[2018-05-28 16:00] VITALS: BP 120/62
--- NOTE | 2018-05-28 16:00 | NUR ---
PT SLEEPING. NO SOB NOTED. NO SIGNS OF PAIN.
--- NOTE | 2018-05-28 18:10 | NUR ---
PT EATING DINNER. NO SOB NOTED. NO COMPLAINTS MADE.
--- NOTE | 2018-05-28 19:00 | NUR ---
PT RESTING. NO SOB NOTED. NO C/O PAIN AT THIS TIME. ENDORSED TO NEXT SHIFT NURSE FOR CONTINUITY OF CARE.
--- NOTE | 2018-05-28 19:20 | NUR ---
RECEIVED BEDSIDE REPORT FROM DAY SHIFT NURSE LALA RN, PT STABLE, NO DISTRESS NOTED, IV TO L UA 22 G PATENT, INTACT, INFUSING NS @ 10ML/HR, INFUSING WELL, PT ON ROOM AIR, NO SOB NOTED, NO C/O PAIN AT THIS MOMENT, INITIAL ASSESSMENT DONE, ALL SAFETY PRECAUTION MET, CALL LIGHT WITHIN REACH, WILL CONTINUE TO MONITOR.
[2018-05-28 20:00] VITALS: BP 103/45
[2018-05-28] MEDS: ATORVASTATIN 20 MG TAB PO SCH (20:10)
--- NOTE | 2018-05-28 20:10 | NUR ---
DUE MEDICATION ADMINISTERED, PT TOLERATED WELL, NO DISTRESS NOTED, CALL LIGHT WITHIN REACH, PT STATED HAVING BACK PAIN THAT THE MEDICATION THAT WAS GIVEN PREVIOUSLY DID NOT WORK, NOTIFIED DR. MADRID REGARDING PT COMPLAINTS, DR. NARVAEZ WILL SEE PT. PT RESTING IN BED, WILL CONTINUE TO MONITOR.
--- NOTE | 2018-05-28 20:30 | NUR ---
DR. MADRID AT BEDSIDE TALKING TO PT, NO NEW ORDER.
--- NOTE | 2018-05-28 21:20 | NUR ---
CHECKED ON PT, PT SLEEPING, NO DISTRESS NOTED, CALL LIGHT WITHIN REACH, WILL CONTINUE TO MONITOR.
--- NOTE | 2018-05-28 23:55 | NUR ---
CHECKED ON PT, PT SLEEPING, NO DISTRESS NOTED, V/S TAKEN, WITHIN PT BASELINE, PT STATED HAVING PAIN BUT REFUSED TO TAKE PRESCRIBED PAIN MEDICATION, PT RESTING, NO DISTRESS NOTED, CALL LIGHT WITHIN REACH, WILL CONTINUE TO MONITOR.
[2018-05-29] VITALS: BP 122/58
[2018-05-29] MEDS: NACL 0.9% 1,000 ML IV SCH (01:01)
--- NOTE | 2018-05-29 04:19 | NUR ---
PT REFUSES V/S CHECK, NO DISTRESS NOTED, SLEEPING, NOTIFIED DR. JULIUS DR. STATED UNDERSTANDING, CALL LIGHT WITHIN REACH, WILL CONTINUE TO MONITOR.
--- NOTE | 2018-05-29 07:30 | NUR ---
RECEIVED PT ASLEEP, AROUSABLE, ORIENTED X4. NO SOB NOTED. NO C/O PAIN AT THIS TIME. STATED HE DOES NOT WANT TO BE BOTHERED. IV TO LT UPPER ARM PATENT AND INTACT. CHEST, DIMINISHED AIR ENTRY TO THE BASES. ABDOMEN SOFT, BOWEL SOUNDS PRESENT. PT REFUSED TO HAVE VITAL SIGNS TAKEN AND NOT TO BE BOTHERED FOR NOW, STATED TO COME IN LATER WHEN HE WAKES UP. INSTRUCTED PT TO CALL FOR ASSISTANCE, CALL LIGHT WITHIN REACH, VERBALIZED UNDERSTANDING.
--- NOTE | 2018-05-29 07:35 | NUR ---
ENDORSED PT TO DAY SHIFT NURSE, NO DISTRESS NOTED, CALL LIGHT WITHIN REACH.
[2018-05-29] MEDS: CARVEDILOL 12.5 MG TAB PO SCH (08:00)
--- NOTE | 2018-05-29 08:30 | NUR ---
DR. BRUNO NOTIFIED THAT PT REFUSED VITAL SIGNS CHECK AND REFUSED TO TAKE HIS SCHEDULED MEDS.
[2018-05-29] MEDS: NITROGLYCERIN 0.6 MG/HR PATCH TD SCH (09:00)
[2018-05-29] MEDS ORDERED: amLODIPine 5 MG TAB PO SCH (09:00)
[2018-05-29] MEDS: ISOSORBIDE DINITRATE 20 MG TAB PO SCH ×2 (09:00→13:00)
[2018-05-29] MEDS: diphenhydrAMINE 50 MG CAP PO SCH ×2 (09:00→13:00)
--- NOTE | 2018-05-29 09:00 | NUR ---
PT FINISHED EATING BREAKFAST. NO SOB NOTED. NO COMPLAINTS MADE. PT STILL DOES NOT WANT VITAL SIGNS TO BE TAKEN, PT STATED LATER.
[2018-05-29] MEDS ORDERED: AMLO5TAB6 PO (10:11)
[2018-05-29] MEDS ORDERED: MAGNESIUM OXIDE 400 MG TAB PO SCH (10:17)
--- NOTE | 2018-05-29 11:00 | NUR ---
NOTIFIED PT THAT HE IS GOING TO BE DISCHARGED TODAY. 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 MEDICAL TECHNOLOGIST HEMATOLOGY NURSE NOTIFIED
--- NOTE | 2018-05-29 13:00 | NUR ---
PT STILL REFUSING TO TAKE ALL HIS MEDICATIONS, RISKS AND CONSEQUENCES EXPLAINED TO PT, VERBALIZED UNDERSTANDING.
--- NOTE | 2018-05-29 15:00 | NUR ---
PT AWAKE, GROOMING HIMSELF IN THE SINK, STATED HE IS JUST WAITING FOR HIS FRIEND. NO SOB NOTED. NO COMPLAINTS MADE.
--- NOTE | 2018-05-29 17:00 | NUR ---
PT STATED HE WILL TAKE THE BUS GOING TO THE TRAIN STATION, THEN HE WILL BE PICKED UP BY HIS FRIEND IN [place] TRAIN STATION. DISCHARGE INSTRUCTIONS GIVEN TO PT WHICH VERBALIZED FULL UNDERSTANDING OF THE TEACHINGS GIVEN AND THE NEED TO FOLLOW UP WITH OWN PCP AND FARM MACHINERY ENGINE MECHANIC WITHIN 7 DAYS. ARM BANDS AND IV REMOVED, CANNULA TIP INTACT.
--- NOTE | 2018-05-29 17:15 | NUR ---
PT WHEELED TO THE FRONT LOBBY IN STABLE CONDITION. NO SOB NOTED, NO COMPLAINTS OF PAIN. PT STATED HE WILL WALK TOWARDS [place]E FOR THE BUS. PT AMBULATORY AND WITH STEADY GAIT. D/C HOME TP SELF.
== END 2018-05-29 17:15 | disposition home or self-care (01) | DRG 311 ==
LOC: MED 21:41 → MMU 05-27 00:47
PROVIDERS: ADMIT General Practice; ATTEND General Practice
DX: I20.1 Angina pectoris with documented spasm (principal); I42.0 Dilated cardiomyopathy; E83.42 Hypomagnesemia; D69.6 Thrombocytopenia, unspecified; I08.3 Combined rheumatic disorders of mitral, aortic and tricuspid valves; R74.0 Nonspecific elevation of levels of transaminase and lactic acid dehydrogenase [LDH]; I11.9 Hypertensive heart disease without heart failure; Z88.6 Allergy status to analgesic agent; Z95.1 Presence of aortocoronary bypass graft; Z95.810 Presence of automatic (implantable) cardiac defibrillator; Z88.8 Allergy status to other drugs, medicaments and biological substances
CPT/HCPCS: 36415; 71046; 80048; 80053; 80305; 81003; 82150; 83036; 83690; 83735; 83880; 84100; 84439; 84443; 84484; 85025; 85610; 85730; 87081; 93005; 99285; J1644; J3475; J7030; Q0163

== ENCOUNTER 2021-01-06 21:37 | Inpatient (IN) | payer MEDICAID, OTHER ==
[~2021-01-06] VITALS: Ht 190.5 cm; Wt 107.5 kg
[~2021-01-06 21:37] MED LIST changes: +AMLO-3 PO; -AMLO10TA PO; -ATOR20TA PO; +ATOR20TA40 PO; -BEN50 PO; -CARV25TA PO; -FURO-570 PO; +FURO40TA9 PO; -ISOS20TA13 PO; +ISOS30TE68 PO; -NITR0.4T2 SL; +NITR1PAT22 TD; +RANEX500 PO; +SPIR25TA PO; -[UNRECOGNIZED DRUG - CODE] TD
[2021-01-06 21:41] VITALS: BP 132/53
--- NOTE | 2021-01-06 21:49 | NUR ---
PT AMBULATED TO ER BED 4
[2021-01-06 22:19] LABS: BASOPHILS % (AUTO) 0.4 % (0.0-2.0); EOSINOPHILS # (AUTO) 0.1 K/uL (0-0.4); EOSINOPHILS % (AUTO) 1.1 % (0.0-4.0); HEMATOCRIT 36.3 % (36-52); HEMOGLOBIN 12.2 g/dL (12.0-18.0); LYMPHOCYTES # (AUTO) 0.6 K/uL (2.0-11.5); LYMPHOCYTES % (AUTO) 10.7 % (20.5-51.1); MEAN CORPUSCULAR HEMOGLOBIN 31 pg (27-31); MEAN CORPUSCULAR HGB CONC 34 g/dL (33-37); MEAN CORPUSCULAR VOLUME 91.1 fL (80-94); MONOCYTES # (AUTO) 0.5 K/uL (0.8-1.0); MONOCYTES % (AUTO) 9.5 % (1.7-9.3); NEUTROPHILS # (AUTO) 4.4 K/uL (1.8-7.7); NEUTROPHILS % (AUTO) 78.3 % (42.2-75.2); PLATELET COUNT (AUTO) 138 K/uL (140-450); RED BLOOD CELL COUNT(AUTO) 3.98 MIL/uL (4.20-6.10); RED CELL DISTRIBUTION WIDTH 16.8 % (11.6-13.7); WHITE BLOOD COUNT (AUTO) 5.6 K/uL (4.8-10.8)
--- NOTE | 2021-01-06 22:20 | NUR ---
Dr. Farley examining patient.
--- NOTE | 2021-01-06 22:22 | NUR ---
X-Ray at bedside.
[2021-01-06] MEDS ORDERED: NITROGLYCERIN 0.4 MG TAB SL ONE (22:25)
[2021-01-06] MEDS ORDERED: BUMETANIDE 1 MG/4 ML VIAL IV ONE (22:25)
[2021-01-06] MEDS ORDERED: MORPHINE SULFATE 2 MG/ML SYR IVP ONE (22:25)
[2021-01-06 22:39] LABS: ALBUMIN 4.1 g/dL (3.4-5.0); ANION GAP 16.8 (8-16); CARBON DIOXIDE 24.7 mmol/L (21-32); POTASSIUM 5.5 mmol/L (3.5-5.1); TOTAL BILIRUBIN 0.6 mg/dL (0.0-1.0)
[2021-01-06 22:41] LABS: PHOSPHORUS 3.6 mg/dL (2.5-4.9)
[2021-01-06 23:40] LABS: APPEARANCE,URINE CLEAR (CLEAR); BILIRUBIN,URINE NEGATIVE (NEGATIVE); BLOOD, URINE NEGATIVE (NEGATIVE); COLOR,URINE YELLOW (YELLOW); LEUKOCYTE ESTERASE ,URINE NEGATIVE (NEGATIVE); NITRITE, URINE NEGATIVE (NEGATIVE); UGLUCOSE NEGATIVE (NEGATIVE)
--- NOTE | 2021-01-07 00:20 | NUR ---
PATIENT SAY THAT THE FAMILY WILL BRING THE HOME LIST OF MEDICATION TOMORROW
[2021-01-07] MEDS ORDERED: POTASSIUM CHLORIDE 10 MEQ TABER PO PRN (00:30)
[2021-01-07] MEDS ORDERED: ACETAMINOPHEN 325 MG TAB PO PRN (00:30)
[2021-01-07] MEDS ORDERED: DOCUSATE SODIUM 100 MG GELCAP PO PRN (00:30)
[2021-01-07] MEDS ORDERED: ONDANSETRON 4 MG/2 ML VIAL IM/IVP PRN (00:30)
[2021-01-07] MEDS ORDERED: ZOLPIDEM 5 MG TAB PO PRN (00:30)
[2021-01-07] MEDS ORDERED: HYDROcodone/APAP 7.5/325 MG 1 TAB PO PRN (00:30)
[2021-01-07] MEDS ORDERED: guaiFENesin DM 200/20 MG-10 ML 10 ML UDC PO PRN (00:30)
--- NOTE | 2021-01-07 00:34 | NUR ---
PATIENT ADMITED INTO THE FLOOR BED 122B ALERT ORIENTED STABLE REPORT AND ENDORSED CARE TO LUCILA ALVAREZ NOT COMPLAINING OF PAIN VITAL SIGNS IN NORMAL LIMITS PACE ON THE MONITOR GOING UNDER DR LOKI CHRISTIAN DOCTOR //Sierra ALVAREZ
[2021-01-07 01:02] LABS: PROTHROMBIN TIME 10.1 secs (10.8-13.4)
[2021-01-07 01:03] VITALS: BP 128/67
--- NOTE | 2021-01-07 01:03 | NUR ---
RECEIVED FROM ER NURSE VIA RUDY. PT AWAKE, ALERT AND ORIENTED. PT ON RA. AMBULATORY.PT HAS G22 SL ON RIGHT HAND. PT IS COMPLAINING OF R HIP PAIN WHEN WALKING.DENIES SOB AND CHEST PAIN. PT HAS NO OTHER COMPLAINS AT THIS TIME. ALL PRECAUTIONS IN PLACE. WILL CONTINUE TO MONITOR.
[2021-01-07 01:16] LABS: BARBITURATE, URINE NEGATIVE ng/ml (NEG <=200); BENZODIAZEPINE, URINE NEGATIVE ng/mL (NEG <=200); CANNABINOID, URINE NEGATIVE ng/mL (NEG <=50); COCAINE, URINE NEGATIVE ng/mL (NEG <=300); OPIATE, URINE POSITIVE ng/mL (NEG <=2000); PHENCYCLIDINE SCREEN,URINE NEGATIVE ng/mL (NEG <=25)
[2021-01-07 01:35] LABS: CHOL/HDL RATIO 2.5 (1-4.5); FREE T4 (FREE THYROXINE) 0.8 ng/dL (0.76-1.46); THYROID STIMULATING HORMONE 4.13 uIU/mL (0.34-3.74)
--- NOTE | 2021-01-07 03:07 | NUR ---
PT ASLEEP ON BED. BREATHING EQUAL AND UNLABORED. ALL PRECAUTIONS IN PLACE. WILL CONTINUE TO MONITOR.
[2021-01-07 04:00] VITALS: BP 125/82
--- NOTE | 2021-01-07 04:15 | NUR ---
PT RESTING IN BED. COMPLAINED OF PAIN ON RIGHT HIP. I OFFERED NORCO BUT HE REFUSED. ALL PRECAUTIONS IN PLACE. WILL CONTINUE TO MONITOR.
--- NOTE | 2021-01-07 07:01 | NUR ---
PT STABLE. NO ACUTE EVENTS THROUGHOUT THE NIGHT. PT NOT IN ANY DISTRESS. NO COMPLAINS AT THIS TIME. ALL NEEDS ATTENDED.ALL PRECAUTIONS IN PLACE. CALL LIGHT WITHIN REACH.WILL ENDORSE TO AM SHIFT NURSE.
--- NOTE | 2021-01-07 07:26 | NUR ---
RECEIVED REPORT FROM JAIL KEEPER NURSE FOR CONTINUITY OF CARE, POC DISCUSSED. PT IS RESTING ON HIS SIDE IN STABLE CONDITION WITH EYES SHUT, ON ROOM AIR WITH CHEST RISING AND FALLING EVEN AND UNLABORED. PT IS ON TELE MONITOR WITH A PACED HEART RATE. SKIN INTACT. PT HAS A RIGHT HAND 22G SALINE LOCK. ALL SAFETY MEASURES IN PLACE, CALL LIGHT WITHIN REACH. WILL CONTINUE TO MONITOR.
--- NOTE | 2021-01-07 07:31 | NUR ---
PT STABLE. ENDORSED TO AM SHIFT NURSE FOR CONTINUITY OF CARE.
--- NOTE | 2021-01-07 07:56 | NUR ---
PATIENT HAS BEEN SCREENED AND CATEGORIZED MODERATE NUTRITION RISK. PATIENT WILL BE SEEN WITHIN 3-5 DAYS OF ADMISSION. 01/09/2021-01/11/[address]
[2021-01-07 08:00] VITALS: BP 98/55
[2021-01-07] MEDS: amLODIPine 5 MG TAB PO SCH (09:00)
[2021-01-07] MEDS: ISOSORBIDE MONONITRATE 30 MG TABER PO SCH (09:00)
[2021-01-07] MEDS: PANTOPRAZOLE 40 MG TABEC PO SCH (09:00)
[2021-01-07] MEDS: FUROSEMIDE 40 MG TAB PO SCH ×2 (09:00→21:40)
[2021-01-07] MEDS: SPIRONOLACTONE 25 MG TAB PO SCH (09:00)
[2021-01-07] MEDS: ATORVASTATIN 20 MG TAB PO SCH (09:00)
--- NOTE | 2021-01-07 09:04 | NUR ---
JOSHUA MEDICATION ADMINISTERED PER MD ORDER. PT TOLERATED ADMINISTRATION. PT EDUCATION PROVIDED AND PT VERBALIZED UNDERSTANDING. BP MEDICATION HELD DUE TO DECREASED BP. PT IS STABLE RESTING IN BED. ALL SAFETY MEASURES IN PLACE, CALL LIGHT WITHIN REACH. WILL CONTINUE TO MONITOR.
[2021-01-07 12:00] VITALS: BP 106/61
[2021-01-07] MEDS ORDERED: MORPHINE SULFATE 2 MG/ML SYR IVP PRN (12:05)
--- NOTE | 2021-01-07 12:23 | NUR ---
PRN PAIN MEDICATION ADMINISTERED PER MD ORDER, PT TOLERATED ADMINISTRATION. IV IS PATENT AND INTACT. PT EDUCATION PROVIDED. PT IS IN STABLE CONDITION. ALL SAFETY MEASURES IN PLACE, CALL LIGHT WITHIN REACH. WILL CONTINUE TO MONTIOR.
--- NOTE | 2021-01-07 12:39 | NUR ---
LUNCH AT BEDSIDE. PT PROVIDED WITH MILK. REPORTS ALL OTHER NEEDS ARE MET AT THIS TIME.
--- NOTE | 2021-01-07 13:40 | NUR ---
PT IS RESTING IN BED WITH NO ACUTE S/S OF DISTRESS. ALL SAFETY MEASURES IN PLACE, CALL LIGHT WITHIN REACH. WILL CONTINUE TO MONITOR.
--- NOTE | 2021-01-07 15:19 | NUR ---
PT STABLE IN BED WITH NO ACUTE S/S OF DISTRESS. ALL SAFETY MEASURES IN PLACE, CALL LIGHT WITHIN REACH.WILL CONTINUE TO MONITOR.
[2021-01-07 16:00] VITALS: BP 116/60
--- NOTE | 2021-01-07 17:33 | NUR ---
NOTIFIED MD OF PTS REPORT OF 8/10 PAIN IN HIS HIP AGAIN.
[2021-01-07] MEDS: MORPHINE SULFATE 2 MG/ML SYR IVP PRN ×2 (18:05→23:37)
--- NOTE | 2021-01-07 18:55 | NUR ---
PT HAS BEEN STABLE THROUGHOUT SHIFT, ALL NEEDS HAVE BEEN MET. PT WILL BE ENDORSED TO ATTIC FANS MECHANIC NURSE. POC WILL BE DISCUSSED.
[2021-01-07 20:00] VITALS: BP 160/57
--- NOTE | 2021-01-07 20:00 | NUR ---
PATIENT WAS RECEIVED ALERT AND COHERENT, AMBULATES TO THE BATHROOM AND BACK TO BED, DENIES PAIN NOR SOB.
--- NOTE | 2021-01-07 22:00 | NUR ---
PATIENT REQUESTED FOR SANDWICH, RN DELIVERED A TURKEY SANDWICH.
--- NOTE | 2021-01-07 23:37 | NUR ---
PATIENT COMPLAINT OF PAIN IN HIS BACK AND RIGHT HIP, MEDICATED WITH MORPHINE 3 MG IV PUSH, STOCK WAS 2 MG PER CARTRIDGE X 2 CARTRIDGES 0.5 OF A CARTRIDGE WAS WASTED WITH WITNESS TO MAKE 3 MG OUT OF 4 MG/ 2 CARTRIDGES.
[2021-01-08] VITALS: BP 168/73
--- NOTE | 2021-01-08 | NUR ---
PATIENT WAS ASLEEP NO S/S OF DISTRESS, DENIES PAIN.
--- NOTE | 2021-01-08 02:00 | NUR ---
PATIENT WAS CALMLY ASLEEP.
[2021-01-08 04:00] VITALS: BP 103/62
[2021-01-08] MEDS: MORPHINE SULFATE 2 MG/ML SYR IVP PRN ×5 (05:03→22:23)
--- NOTE | 2021-01-08 05:03 | NUR ---
INK GRINDER WENT TO THE PATIENT TO DRAW BLOOD. ASKED FOR RN. PATIENT C/O PAIN IN HIS RIGHT THIGH AND BACK 09/22, MEDICATED WITH MORPHINE 3 MG IV PUSH.
[2021-01-08 06:21] LABS: BASOPHILS % (AUTO) 0.5 % (0.0-2.0); EOSINOPHILS % (AUTO) 1.1 % (0.0-4.0); HEMATOCRIT 34.9 % (36-52); HEMOGLOBIN 11.9 g/dL (12.0-18.0); LYMPHOCYTES # (AUTO) 0.5 K/uL (2.0-11.5); LYMPHOCYTES % (AUTO) 15.2 % (20.5-51.1); MEAN CORPUSCULAR HEMOGLOBIN 31 pg (27-31); MEAN CORPUSCULAR HGB CONC 34 g/dL (33-37); MONOCYTES # (AUTO) 0.4 K/uL (0.8-1.0); MONOCYTES % (AUTO) 11.9 % (1.7-9.3); NEUTROPHILS # (AUTO) 2.3 K/uL (1.8-7.7); NEUTROPHILS % (AUTO) 71.3 % (42.2-75.2); PLATELET COUNT (AUTO) 98 K/uL (140-450); RED BLOOD CELL COUNT(AUTO) 3.83 MIL/uL (4.20-6.10); RED CELL DISTRIBUTION WIDTH 16.9 % (11.6-13.7); WHITE BLOOD COUNT (AUTO) 3.2 K/uL (4.8-10.8)
[2021-01-08 06:45] LABS: ANION GAP 11.3 (8-16); CARBON DIOXIDE 29.7 mmol/L (21-32); CREATININE 1.2 mg/dL (0.6-1.3)
[2021-01-08 07:07] LABS: T4 (THYROXINE) 5.6 ug/dL (4.5-12.0)
--- NOTE | 2021-01-08 07:42 | NUR ---
ALL REPORTS WERE GIVEN, TRANSFER OF CARE ENDORSED.
--- NOTE | 2021-01-08 07:53 | NUR ---
RECEIVED REPORT FROM EFFICIENCY ENGINEER NURSE FOR CONTINUITY OF CARE, POC DISCUSSED. PT IS RESTING ON BED ANAHI COMPLAINS AT THIS MOMENT NO SOD NOTED ON ROOM AIR WITH CHEST RISING AND FALLING EVEN AND UNLABORED. PT IS ON TELE MONITOR WITH A PACED HEART RATE. SKIN INTACT. PT HAS A RIGHT HAND 22G SALINE LOCK. ALL SAFETY MEASURES IN PLACE, CALL LIGHT WITHIN REACH.
[2021-01-08 08:00] VITALS: BP 134/68
[2021-01-08] MEDS: ISOSORBIDE MONONITRATE 30 MG TABER PO SCH (09:16)
[2021-01-08] MEDS: SPIRONOLACTONE 25 MG TAB PO SCH (09:16)
[2021-01-08] MEDS: PANTOPRAZOLE 40 MG TABEC PO SCH (09:16)
[2021-01-08] MEDS: FUROSEMIDE 40 MG TAB PO SCH ×2 (09:16→20:49)
[2021-01-08] MEDS: amLODIPine 5 MG TAB PO SCH (09:17)
[2021-01-08] MEDS: ATORVASTATIN 20 MG TAB PO SCH (09:17)
--- NOTE | 2021-01-08 09:45 | NUR ---
PATIENT IN BED COMPLAINS ABOUT PAIN GOT MEDICATED MD ORDER .NO SOD NOTED, GOT MORNING MEDICATION TOLERATED WELL, ALL SAFETY MEASURES IN PLACE , CALLS LIGHT WITHIN REACH
--- NOTE | 2021-01-08 11:56 | NUR ---
PATIENT IN BED NO COMPLAINS NO SOD NOTED, ALL SAFETY MEASURES IN PLACE , CALLS LIGHT WITHIN REACH
[2021-01-08 12:00] VITALS: BP 135/52
--- NOTE | 2021-01-08 13:24 | NUR ---
DC PLANNING: THE PATIENT ADMITTED THROUGH THE ED WITH C/O CHEST PAIN AND WORSENING SOB. THE PATIENT HAS A H/O CHF, CABG, AORTIC VALVE REPLACEMENT, ICD PLACEMENT, ABLATION AND ANGINA. HE ALSO C/O LE EDEMA AND AN 8 LB WEIGHT GAIN. HE IS FOLLOWED AT [facility] BY CARDIOLOGY AND HAS A HENDERSON ADDRESS. CXR SHOWED CARDIOMEGALY AND PULMONARY EDEMA, ECHO SHOWS A FUNCTIONING PROSTHETIC AORTIC VALVE WITH LVEF OF 55-60%. STARTED ON MS IV PRN, LASIX PO, FLUID RESTRICTION OF 1200CC/DAY, DAILY WEIGHTS AND CARDIAC DIET. THE PATIENT HISTORICALLY TAKES AN UBER TO THE TRAIN STATION TO GET BACK HOME WHEN HE DISCHARGES, DC PLAN IS FOR HIM TO RETURN HOME WHEN CLINICALLY STABLE. CM WILL FOLLOW FOR NEEDS.
--- NOTE | 2021-01-08 14:27 | NUR ---
PATIENT IN BED NO COMPLAINS NO SOD NOTED, ALL SAFETY MEASURES IN PLACE , CALLS LIGHT WITHIN REACH
[2021-01-08 16:00] VITALS: BP 133/60
--- NOTE | 2021-01-08 16:24 | NUR ---
PATIENT IN BED NO COMPLAINS NO SOD NOTED, ALL SAFETY MEASURES IN PLACE , CALLS LIGHT WITHIN REACH
--- NOTE | 2021-01-08 17:32 | NUR ---
PATIENT IN BED NO COMPLAINS NO SOD NOTED, ALL SAFETY MEASURES IN PLACE , CALLS LIGHT WITHIN REACH
--- NOTE | 2021-01-08 19:24 | NUR ---
full bedside report given to night club manager nurse
--- NOTE | 2021-01-08 19:30 | NUR ---
RECEIVED REPORT FROM RN DAYSHIFT NURSE AT BEDSIDE FOR CONTINUITY OF CARE, PT IN STABLE CONDITION.
[2021-01-08 20:00] VITALS: BP 113/55
--- NOTE | 2021-01-08 20:30 | NUR ---
PT LYING IN BED AOX4 ON ROOM AIR SKIN INTACT. HE HAS A 22G ON RIGHT HAND AND SALINE LOCKED. PT HAS NO C/O VOICED AT THIS TIME. V/S FOLLOWS: T 99.2 P 70 R 18 B/P 113/55 02 94% ON ROOM AIR. ALL UNIVERSAL FALLS PRECAUTIONS IN PLACE.
--- NOTE | 2021-01-08 20:45 | NUR ---
PT DECLINED ANY COOLING MEASURES, HE HAD NO BLANKETS OR SHEETS ON. WILL CONTINUE TO MONITOR TEMPERATURE.
--- NOTE | 2021-01-08 21:00 | NUR ---
CALLED MD LÓPEZ REGARDING PT ORDERED LASIX. B/P WAS 113/55, PER OK TO GIVE. PT WAS GIVEN ORDERED LASIX MEDICATION PURPOSE EXPLAINED TO PT AND PT VERBALIZED UNDERSTANDING. PT LUNG SOUNDS CLEAR RESPIRATIONS EVEN AND UNLABORED. PT DENIES ANY CHEST PAIN AT THIS TIME. ALL UNIVERSAL FALLS PRECAUTIONS IN PLACE.
--- NOTE | 2021-01-08 22:30 | NUR ---
PT C/O SEVERE HIP AND BACK PAIN, HE WAS GIVEN IVP/PRN MORPHINE WILL MONITOR FOR EFFECT. ALL OTHER REQUESTS ATTENDED BY STAFF.
[2021-01-09] VITALS: BP 96/47
--- NOTE | 2021-01-09 00:30 | NUR ---
ROUNDS DONE, PT IN BED ASLEEP.
[2021-01-09] MEDS: MORPHINE SULFATE 2 MG/ML SYR IVP PRN ×4 (02:37→16:30)
--- NOTE | 2021-01-09 02:40 | NUR ---
PT AWAKE WITH 8/10 PAIN IN HIP AND BACK, GIVEN PRN/IVP MORPHINE. ALL OTHER REQUESTS ATTENDED BY STAFF.
[2021-01-09 04:00] VITALS: BP 103/69
--- NOTE | 2021-01-09 04:30 | NUR ---
PT IN BED ASLEEP NO S/S OF PAIN OR DISTRESS NOTED.
[2021-01-09 06:29] LABS: BASOPHILS % (AUTO) 0.3 % (0.0-2.0); EOSINOPHILS % (AUTO) 1.3 % (0.0-4.0); HEMOGLOBIN 12.3 g/dL (12.0-18.0); LYMPHOCYTES # (AUTO) 0.6 K/uL (2.0-11.5); MEAN CORPUSCULAR HEMOGLOBIN 31 pg (27-31); MEAN CORPUSCULAR HGB CONC 34 g/dL (33-37); MEAN CORPUSCULAR VOLUME 90.5 fL (80-94); MONOCYTES # (AUTO) 0.5 K/uL (0.8-1.0); MONOCYTES % (AUTO) 12.4 % (1.7-9.3); NEUTROPHILS # (AUTO) 2.6 K/uL (1.8-7.7); PLATELET COUNT (AUTO) 113 K/uL (140-450); RED BLOOD CELL COUNT(AUTO) 3.97 MIL/uL (4.20-6.10); RED CELL DISTRIBUTION WIDTH 16.8 % (11.6-13.7); WHITE BLOOD COUNT (AUTO) 3.8 K/uL (4.8-10.8)
[2021-01-09 06:36] LABS: CARBON DIOXIDE 30.2 mmol/L (21-32); CREATININE 1.1 mg/dL (0.6-1.3); POTASSIUM 4.2 mmol/L (3.5-5.1)
--- NOTE | 2021-01-09 07:08 | NUR ---
RECEIVED REPORT FROM DE ICER NURSE FOR CONTINUITY OF CARE, POC DISCUSSED. PT IS RESTING ON BED NO COMPLAINS AT THIS MOMENT NO SOD NOTED ON ROOM AIR WITH CHEST RISING AND FALLING EVEN AND UNLABORED. PT IS ON TELE MONITOR WITH A PACED HEART RATE. SKIN INTACT. PT HAS A RIGHT HAND 22G SALINE LOCK. ALL SAFETY MEASURES IN PLACE, CALL LIGHT WITHIN REACH.
[2021-01-09 08:00] VITALS: BP 97/47
[2021-01-09] MEDS: SPIRONOLACTONE 25 MG TAB PO SCH (09:00)
[2021-01-09] MEDS: ISOSORBIDE MONONITRATE 30 MG TABER PO SCH (09:00)
[2021-01-09] MEDS: amLODIPine 5 MG TAB PO SCH (09:00)
[2021-01-09] MEDS: FUROSEMIDE 40 MG TAB PO SCH (09:00)
[2021-01-09] MEDS: ATORVASTATIN 20 MG TAB PO SCH (09:07)
[2021-01-09] MEDS: PANTOPRAZOLE 40 MG TABEC PO SCH (09:07)
--- NOTE | 2021-01-09 09:30 | NUR ---
patient in bed no complains at this time, Lipitor and Protonix was administrated tolerated well, other morning scheduale medication were hold due to low blood pressure, dr owens was informed and asked to hold them. no sod noted, all safety masures on place calls light within reach
--- NOTE | 2021-01-09 11:13 | NUR ---
PATIENT IN BED NO COMPLAINS NO SOD NOTED, ALL SAFETY MEASURES IN PLACE , CALLS LIGHT WITHIN REACH
[2021-01-09 12:00] VITALS: BP 111/59
--- NOTE | 2021-01-09 14:01 | NUR ---
PATIENT IN BED NO COMPLAINS NO SOD NOTED, WATCHING HIS PHONE ALL SAFETY MEASURES IN PLACE , CALLS LIGHT WITHIN REACH
[2021-01-09 14:43] VITALS: BP 111/59
--- NOTE | 2021-01-09 15:30 | NUR ---
PATIENT IN BED NO COMPLAINS NO SOD NOTED, ALL SAFETY MEASURES IN PLACE , CALLS LIGHT WITHIN REACH
[2021-01-09 16:00] VITALS: BP 123/73
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
== END 2021-01-09 18:00 | disposition home or self-care (01) | DRG 194 ==
LOC: MED 21:37 → MTU 23:40
PROVIDERS: ADMIT Family Medicine; ATTEND Family Medicine
DX: I11.0 Hypertensive heart disease with heart failure (principal); J96.00 Acute respiratory failure, unspecified whether with hypoxia or hypercapnia; G93.41 Metabolic encephalopathy; E86.0 Dehydration; D69.6 Thrombocytopenia, unspecified; K21.9 Gastro-esophageal reflux disease without esophagitis; R74.01 Elevation of levels of liver transaminase levels; Z20.822 Contact with and (suspected) exposure to COVID-19; E87.5 Hyperkalemia; I50.9 Heart failure, unspecified; E78.5 Hyperlipidemia, unspecified; I25.10 Atherosclerotic heart disease of native coronary artery without angina pectoris; Z95.0 Presence of cardiac pacemaker; Z95.1 Presence of aortocoronary bypass graft; Z95.2 Presence of prosthetic heart valve; I25.2 Old myocardial infarction; Z88.8 Allergy status to other drugs, medicaments and biological substances; Z79.899 Other long term (current) drug therapy; Z82.49 Family history of ischemic heart disease and other diseases of the circulatory system; I50.43 Acute on chronic combined systolic (congestive) and diastolic (congestive) heart failure
CPT/HCPCS: 36415; 71045; 80048; 80053; 80305; 81003; 82150; 82803; 83036; 83690; 83735; 83880; 84100; 84436; 84439; 84443; 84479; 84484; 85025; 85610; 85730; 87081; 93005; 96374; 96375; 99285; J2270; J3490; Q0092

== ENCOUNTER 2022-06-27 21:21 | Inpatient (IN) | payer MEDICAID, OTHER ==
[~2022-06-27] VITALS: Ht 190.5 cm; Wt 99.8 kg
[2022-06-27 21:29] VITALS: BP 143/83
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
--- NOTE | 2022-06-27 22:05 | NUR ---
Dr. Pena examining patient.
[2022-06-27 22:30] LABS: PROTHROMBIN TIME 10.4 secs (10.8-13.4)
[2022-06-27 22:34] LABS: BASOPHILS % (AUTO) 0.3 % (0.0-2.0); EOSINOPHILS % (AUTO) 0.8 % (0.0-4.0); HEMOGLOBIN 12.2 g/dL (12.0-18.0); LYMPHOCYTES # (AUTO) 0.5 K/uL (2.0-11.5); LYMPHOCYTES % (AUTO) 10.2 % (20.5-51.1); MEAN CORPUSCULAR HEMOGLOBIN 32 pg (27-31); MEAN CORPUSCULAR HGB CONC 34 g/dL (33-37); MONOCYTES # (AUTO) 0.5 K/uL (0.8-1.0); MONOCYTES % (AUTO) 9.6 % (1.7-9.3); NEUTROPHILS # (AUTO) 4.2 K/uL (1.8-7.7); NEUTROPHILS % (AUTO) 79.1 % (42.2-75.2); PLATELET COUNT (AUTO) 95 K/uL (140-450); RED BLOOD CELL COUNT(AUTO) 3.82 MIL/uL (4.20-6.10); RED CELL DISTRIBUTION WIDTH 16.7 % (11.6-13.7); WHITE BLOOD COUNT (AUTO) 5.3 K/uL (4.8-10.8)
[2022-06-27] MEDS ORDERED: MORPHINE SULFATE 4 MG/ML SYR IVP ONE (22:35)
[2022-06-27 22:52] LABS: ALBUMIN 4.1 g/dL (3.4-5.0); ANION GAP 10.8 (8-16); CARBON DIOXIDE 26.4 mmol/L (21-32); CREATININE 1.2 mg/dL (0.6-1.3); POTASSIUM 4.2 mmol/L (3.5-5.1); TOTAL BILIRUBIN 0.6 mg/dL (0.0-1.0)
[2022-06-28] MEDS ORDERED: FUROSEMIDE 40 MG/4 ML VIAL IVP SCH (00:30)
[2022-06-28] MEDS ORDERED: ASPIRIN 325 MG TAB PO ONE (00:30)
--- NOTE | 2022-06-28 00:57 | NUR ---
Pt resting comfortably at this time, rise and fall of chest noted. No s/s pain or discomfort.
[2022-06-28] MEDS ORDERED: FURO-570 PO (02:59)
--- NOTE | 2022-06-28 03:00 | NUR ---
Swabs collected and sent to lab
[2022-06-28] MEDS ORDERED: AMLO5TAB PO (03:02)
--- NOTE | 2022-06-28 03:54 | NUR ---
Pt resting comfortably at this time, easy to awake. Denies any pain or discomfort. No c/o SOB.
--- NOTE | 2022-06-28 06:40 | NUR ---
Resting comfortably, easy to awake, denies pain or discomfort. no SOB or distress.
[2022-06-28 06:42] LABS: BASOPHILS % (AUTO) 0.3 % (0.0-2.0); EOSINOPHILS % (AUTO) 1.1 % (0.0-4.0); HEMOGLOBIN 12.7 g/dL (12.0-18.0); LYMPHOCYTES # (AUTO) 0.6 K/uL (2.0-11.5); LYMPHOCYTES % (AUTO) 15.3 % (20.5-51.1); MEAN CORPUSCULAR HEMOGLOBIN 32 pg (27-31); MEAN CORPUSCULAR HGB CONC 33 g/dL (33-37); MEAN CORPUSCULAR VOLUME 95.2 fL (80-94); MONOCYTES # (AUTO) 0.5 K/uL (0.8-1.0); NEUTROPHILS # (AUTO) 2.7 K/uL (1.8-7.7); NEUTROPHILS % (AUTO) 71.3 % (42.2-75.2); PLATELET COUNT (AUTO) 81 K/uL (140-450); RED BLOOD CELL COUNT(AUTO) 3.98 MIL/uL (4.20-6.10); RED CELL DISTRIBUTION WIDTH 16.8 % (11.6-13.7); WHITE BLOOD COUNT (AUTO) 3.8 K/uL (4.8-10.8)
[2022-06-28 06:52] LABS: ANION GAP 9.2 (8-16); CARBON DIOXIDE 29.8 mmol/L (21-32)
--- NOTE | 2022-06-28 07:20 | NUR ---
REPORT MIKE NAZARIO, ALL QUESTIONS WERE ANSWERED, NO CP OR SOB NOTED, 100% V PACED ON MONITOR
--- NOTE | 2022-06-28 07:26 | NUR ---
Report given Barb RN for transfer of care.
--- NOTE | 2022-06-28 08:10 | NUR ---
RECEIVED REPORT FROM ER NURSE. PT IS AOX4, IV TO RIGHT WRIST 22G. PT STABLE, NO SIGNS OF DISTRESS, NO REPORTS OF PAIN/DISCOMFORT. ORIENTED PT TO ROOM, BED MECHANICS, CALL LIGHT, BATHROOM. WILL CONTINUE WITH PT CARE.
--- NOTE | 2022-06-28 09:25 | NUR ---
PATIENT HAS BEEN SCREENED AND CATEGORIZED MODERATE NUTRITION RISK. PATIENT WILL BE SEEN WITHIN 3-5 DAYS OF ADMISSION. REVIEWED BY FAY RIOJAS RD
[2022-06-28 12:00] VITALS: BP 102/55
[2022-06-28] MEDS ORDERED: NITROGLYCERIN 0.4 MG TAB SL PRN (12:25)
--- NOTE | 2022-06-28 14:25 | NUR ---
DC [age] YRS OLD FEMALE PATIENT WAS ADMITTED FROM HOME WITH A DX OF CHEST PAIN. PATIENT HAS A HX OF CARDIOMYOPATHY, CAD WITH 3 SC S/P 4 STENT PLACEMENT ,CABG, WPW SYNDROME PACEMAKER AND TRICUSPID VALVE REPLACEMENT. CXR SHOWED MILD INTERSTITIAL PUL EDEMA. RAPID COVID TEST NEGATIVE. ADMINISTERED IV LASIX AND CONTINUED HOME MEDS. CONSULTED WITH CARDIO. DC PLAN TO GO HOME WHEN STABLE. CM TO FOLLOW
[2022-06-28] MEDS ORDERED: HYDROcodone/APAP 7.5/325 MG 1 TAB PO PRN (14:45)
[2022-06-28] MEDS ORDERED: POTASSIUM CHLORIDE 10 MEQ TABER PO PRN (14:45)
[2022-06-28] MEDS ORDERED: ONDANSETRON 4 MG/2 ML VIAL IVP PRN (14:45)
[2022-06-28] MEDS ORDERED: MAG SULF 2000 MG/WATER PREMIX 50 ML IV PRN (14:45)
[2022-06-28] MEDS ORDERED: ACETAMINOPHEN 325 MG TAB PO PRN (14:45)
[2022-06-28] MEDS: NACL 0.9% 1,000 ML IV SCH (15:20)
[2022-06-28 16:00] VITALS: BP 110/63
[2022-06-28 16:01] LABS: PROTHROMBIN TIME 10.8 secs (10.8-13.4)
[2022-06-28 16:34] LABS: CHOL/HDL RATIO 2.5 (1-4.5); FREE T4 (FREE THYROXINE) 0.71 ng/dL (0.76-1.46); MAGNESIUM 1.9 mg/dL (1.8-2.4); PHOSPHORUS 3.3 mg/dL (2.5-4.9); THYROID STIMULATING HORMONE 3.08 uIU/mL (0.34-3.74)
[2022-06-28] MEDS: FUROSEMIDE 40 MG/4 ML VIAL IVP SCH (17:00)
--- NOTE | 2022-06-28 19:29 | NUR ---
ENDORSED PT TO NIGHTSHIFT NURSE FOR CONTINUITY OF CARE. PT STABLE, RESTING IN BED, NO SIGNS OF DISTRESS. PT IV INFILTRATED, IV REMOVED. ATTEMPTED NEW IV INSERTION, PT REFUSED. PT STATES HE DOES NOT WANT TO BE POKED AGAIN AND IS REQUESTING PICC/MID LINE. MD AND NIGHT NURSE INFORMED.
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
[2022-06-28 20:00] VITALS: BP 112/68
[2022-06-28] MEDS: RANOLAZINE 500 MG TER PO SCH (20:13)
[2022-06-28] MEDS: DOCUSATE SODIUM 100 MG GELCAP PO SCH (20:13)
--- NOTE | 2022-06-28 20:52 | NUR ---
MIDLINE INSERTED IN THE LEFT ARM, OK TO USE PER ALBINO PICC LINE RN.
[2022-06-29] VITALS: BP 110/71
--- NOTE | 2022-06-29 | NUR ---
VITAL SIGNS TAKEN AND DOCUMENTED, WITHIN NORMAL LIMITS. DENIES PAIN. PROVIDED PUDDING PER PT'S REQUEST.CALL LIGHT REMAINS WITHIN REACH.
[2022-06-29 01:13] LABS: APPEARANCE,URINE CLEAR (CLEAR); BILIRUBIN,URINE NEGATIVE (NEGATIVE); BLOOD, URINE NEGATIVE (NEGATIVE); COLOR,URINE YELLOW (YELLOW); LEUKOCYTE ESTERASE ,URINE NEGATIVE (NEGATIVE); NITRITE, URINE NEGATIVE (NEGATIVE); PH,URINE 7.5 (5.0-9.0); UGLUCOSE NEGATIVE (NEGATIVE)
[2022-06-29 01:53] LABS: BARBITURATE, URINE NEGATIVE ng/ml (NEG <=200); BENZODIAZEPINE, URINE NEGATIVE ng/mL (NEG <=200); CANNABINOID, URINE NEGATIVE ng/mL (NEG <=50); COCAINE, URINE NEGATIVE ng/mL (NEG <=300); OPIATE, URINE POSITIVE ng/mL (NEG <=2000); PHENCYCLIDINE SCREEN,URINE NEGATIVE ng/mL (NEG <=25)
--- NOTE | 2022-06-29 02:19 | NUR ---
ROUNDING DONE. PATIENT IS ASLEEP. BREATHING EVEN AND UNLABORED. CALL LIGHT WITHIN REACH.
[2022-06-29 04:00] VITALS: BP 123/57
--- NOTE | 2022-06-29 06:36 | NUR ---
PT IS ASLEEP. ALL NEEDS ATTENDED TO. NO S/SX OF PAIN NOR DISCOMFORT. SAFETY PRECAUTIONS IN PLACE, CALL LIGHT REMAINS WITHIN REACH.
--- NOTE | 2022-06-29 07:00 | NUR ---
RECEIVED BEDSIDE REPORT FROM NIGHTSHIFT NURSE. PT IS ASLEEP IN BED, WOKE TO NAME AND TOUCH. NO SIGNS OF DISTRESS, NO REPORTS OF PAIN. WILL CONTINUE WITH CARE.
[2022-06-29 08:00] VITALS: BP 95/54
[2022-06-29] MEDS ORDERED: amLODIPine 5 MG TAB PO SCH (09:00)
[2022-06-29] MEDS ORDERED: PANTOPRAZOLE 40 MG INJ VIAL IVP SCH (09:00)
[2022-06-29] MEDS ORDERED: ASPIRIN 325 MG TABEC PO SCH (09:00)
[2022-06-29] MEDS ORDERED: carvediloL 3.125 MG TAB PO SCH (09:00)
[2022-06-29] MEDS: FUROSEMIDE 40 MG/4 ML VIAL IVP SCH (09:00)
[2022-06-29] MEDS ORDERED: LOSARTAN 25 MG TAB PO SCH (09:00)
[2022-06-29] MEDS: DOCUSATE SODIUM 100 MG GELCAP PO SCH (09:20)
[2022-06-29] MEDS: RANOLAZINE 500 MG TER PO SCH (09:36)
[2022-06-29] MEDS: NACL 0.9% 1,000 ML IV SCH (10:55)
[2022-06-29 14:16] VITALS: BP 135/58
--- NOTE | 2022-06-29 14:40 | NUR ---
PT INFORMED ON DISCHARGE, PT VERBALIZE UNDERSTANDING. DISCHARGE PAPERWORK SIGNED. MIDLINE REMOVED, CLEAN DRESSING APPLIED. ID BAND REMOVED. WALKED WITH PT OUT OF UNIT TO [employer]. PT STABLE NO SIGNS OF DISTRESS, NO REPORTS OF PAIN. PT PICKED UP BY MARILOU GRIFFIN [facility], DRIVERS NAME IS MATIAS. PT DEST[facility]ATION IS [facility]. Addendum: 06/29/22 at 1702 by TELMA BOLANOS RN WRONG TIME, CORRECT TIME IS 1640.
[2022-06-29 15:51] VITALS: BP 135/58
--- NOTE | 2022-06-29 16:40 | NUR ---
PT DISCHARGED 2109.
== END 2022-06-29 16:40 | disposition home or self-care (01) | DRG 198 ==
LOC: MED 21:21 → MTU 06-28 02:22
PROC: 05HY33Z Insertion of Infusion Device into Upper Vein, Percutaneous Approach (ICD-10-PCS; principal; 2022-06-28)
PROC: B54NZZA Ultrasonography of Left Upper Extremity Veins, Guidance (ICD-10-PCS; 2022-06-28)
DX: R07.89 Other chest pain (principal); I25.10 Atherosclerotic heart disease of native coronary artery without angina pectoris; I42.9 Cardiomyopathy, unspecified; J81.1 Chronic pulmonary edema; I11.0 Hypertensive heart disease with heart failure; I50.9 Heart failure, unspecified; Z20.822 Contact with and (suspected) exposure to COVID-19; Z95.1 Presence of aortocoronary bypass graft; Z88.8 Allergy status to other drugs, medicaments and biological substances
CPT/HCPCS: 36415; 71045; 80048; 80053; 80305; 81003; 82140; 82150; 83036; 83605; 83690; 83735; 83880; 84100; 84439; 84443; 84484; 85025; 85610; 85730; 87081; 93005; 96374; 96375; 99285; C9113; J1940; J2270